=== PATIENT | female | born 1940 | race Caucasian/White ===

== ENCOUNTER 2023-03-29 11:48 | Emergency (ER) | payer MEDICARE ==
[~2023-03-29] VITALS: Ht 172.7 cm; Wt 54.5 kg
[~2023-03-29 11:48] MED LIST: ASPI-1265 PO; ATOR10TA87 PO; CALC600T35 PO; CHOL100046 PO; CYAN500T71 PO; FOLI0.4T6 PO; LISI40TA13 PO; MULT-1141 PO; NEBI2.5T2 PO; OMEG500C PO; SERT25TA PO; TRIA1CAP88 PO; UBID1CAP54 PO
[2023-03-29 12:59] LABS: BASOPHILS % (AUTO) 0.4 % (0-1); EOSINOPHILS % (AUTO) 0.9 % (0-6); HEMATOCRIT 36.5 % (35.0-45.0); HEMOGLOBIN 12.2 g/dl (12.0-16.0); LYMPHOCYTES % (AUTO) 17.9 % (21-51); MEAN CORPUSCULAR HEMOGLOBIN 30.3 PG (27.0-31.0); MEAN CORPUSCULAR HGB CONC 33.5 g/dL (33.0-36.5); MEAN CORPUSCULAR VOLUME 90.5 FL (78-98); MEAN PLATELET VOLUME 8.8 FL (7.4-10.4); MONOCYTES # (AUTO) 0.5 X10'3 (0-0.9); MONOCYTES % (AUTO) 9.2 % (2-12); NEUTROPHILS # (AUTO) 3.9 X10'3 (1.8-7.7); NEUTROPHILS % (AUTO) 71.6 % (42-75); PLATELET COUNT 186 X10'3 (140-440); RED BLOOD COUNT 4.04 X10'6 (4.20-5.60); RED CELL DISTRIBUTION WIDTH 14.1 % (11.5-14.5); WHITE BLOOD COUNT 5.5 X10'3 (4.5-11.0)
[2023-03-29 13:24] LABS: ALANINE AMINOTRANSFERASE 29 U/L (12-78); ALBUMIN 3.9 G/DL (3.4-5.0); ALBUMIN/GLOBULIN RATIO 1.4 (1.1-1.5); ALKALINE PHOSPHATASE 106 IU/L (46-116); ANION GAP 5 (8-16); ASPARTATE AMINO TRANSFERASE 22 U/L (10-37); BILIRUBIN,TOTAL 0.7 MG/DL (0.1-1.0); BLOOD UREA NITROGEN 13 MG/DL (7-18); BUN/CREATININE RATIO 14.4 (10.0-20.0); CALCIUM 9.7 MG/DL (8.5-10.1); CHLORIDE 102 MMOL/L (99-107); GLUCOSE 124 MG/DL (70-104); MAGNESIUM 2.1 MG/DL (1.5-2.4); POTASSIUM 3.4 MMOL/L (3.5-5.1); SODIUM 139 MMOL/L (135-145); TOTAL PROTEIN 6.7 G/DL (6.4-8.2); eGFR 60 ML/MIN
[2023-03-29 15:16] LABS: CLARITY,URINE CLEAR (Clear); COLOR,URINE STRAW (Yellow); GLUCOSE, URINE NEGATIVE (Neg); KETONES,URINE NEGATIVE (Neg); LEUKOCYTE ESTERASE ,URINE NEGATIVE (Neg); NITRITES, URINE NEGATIVE (Neg); OCCULT BLOOD,URINE NEGATIVE (Neg); PH,URINE 6.5 (4.8-8.0); PROTEIN,URINE NEGATIVE (Neg); UROBILINOGEN,URINE 0.2 E.U/dL (0.2-1.0)
[2023-03-29 15:17] LABS: UA COLLECTION TYPE CLN CATCH MIDSTREAM
[2023-03-29] MEDS ORDERED: amLODIPine 5mg tablet PO ONE (16:15)
[2023-03-29] MEDS ORDERED: AMLO2.5T2 PO (16:23)
[2023-03-29] MEDS ORDERED: amLODIPine 2.5mg tablet PO ONE (16:25)
[2023-03-29 16:35] VITALS: BP 202/87
== END 2023-03-29 16:36 | disposition home or self-care (01) ==
LOC: ER 11:49
DX: I10 Essential (primary) hypertension (principal); E78.00 Pure hypercholesterolemia, unspecified; Z79.899 Other long term (current) drug therapy; Z79.1 Long term (current) use of non-steroidal anti-inflammatories (NSAID); Z79.2 Long term (current) use of antibiotics
CPT/HCPCS: 36415; 71045; 80053; 81003; 83735; 83880; 84484; 85025; 93005; 93880; 93975; 99285